=== PATIENT | female | born 1970 | race Caucasian/White ===

== ENCOUNTER 2018-10-24 07:52 | Observation (INO) | payer OTHER ==
[2018-10-24] MEDS: SOD CHLORIDE 0.9% 1,000 ML IV ×2 (08:00→13:39)
[2018-10-24] MEDS ORDERED: CEFAZOLIN 2 GM/50 ML (PMX) 50 ML IVPB (08:00)
[2018-10-24] MEDS ORDERED: LIDOCAINE 2% (SDV) 5 ML INJ (09:59)
[2018-10-24] MEDS ORDERED: FENTAnyl 50 MCG/ML VIAL ×2 (09:59→11:11)
[2018-10-24] MEDS ORDERED: MIDAZOLAM 1 MG/ML 2 ML INJ (09:59)
[2018-10-24] MEDS ORDERED: PROPOFOL 20 ML (09:59)
[2018-10-24] MEDS ORDERED: CEFAZOLIN 1 GM INJ (09:59)
[2018-10-24] MEDS ORDERED: DEXAMETHASONE 4 MG/ML 5 ML INJ (11:06)
[2018-10-24] MEDS ORDERED: METOCLOPRAMIDE 10 MG INJ (11:06)
[2018-10-24] MEDS ORDERED: FAMOTIDINE 20 MG INJ (11:06)
[2018-10-24] MEDS ORDERED: ONDANSETRON 4 MG INJ (11:06)
[2018-10-24] MEDS ORDERED: ISOSULFAN BLUE 1% 5 ML INJ SC (11:18)
[2018-10-24] MEDS ORDERED: OXYCODONE/ACETAMINOPHEN (5/325) TAB PO ×2 (11:30)
[2018-10-24] MEDS ORDERED: HYDROmorphONE 1 MG/5 ML IV SYRINGE IV (11:30)
[2018-10-24] MEDS: D5W-0.45 NACL + KCL 20 MEQ 1,000 ML IV ×2 (12:50→22:06)
[2018-10-24] MEDS ORDERED: ONDANSETRON 4 MG INJ IV (13:00)
[2018-10-24] MEDS: MEPERIDINE 25 MG INJ IV (13:14)
[2018-10-24] MEDS: ONDANSETRON 4 MG INJ IV (13:14)
[2018-10-24] MEDS: HYDROmorphONE 1 MG/5 ML IV SYRINGE IV ×2 (13:28→13:38)
[2018-10-24] MEDS: ACETAMINOPHEN 1000MG/100ML IV 100 ML IVPB (14:25)
[2018-10-24] MEDS: HYDROCODONE/APAP (5/325) TAB PO (22:06)
[2018-10-25] MEDS: ACETAMINOPHEN 1000MG/100ML IV 100 ML IVPB (00:47)
[2018-10-25] MEDS: SOD CHLORIDE 0.9% 1,000 ML IV ×2 (02:00→14:10)
[2018-10-25] MEDS: morphine 2 MG INJ IV (04:42)
[2018-10-25] MEDS: D5W-0.45 NACL + KCL 20 MEQ 1,000 ML IV ×2 (04:50→12:43)
[2018-10-25] MEDS: HYDROCODONE/APAP (5/325) TAB PO (12:05)
== END 2018-10-25 15:05 | disposition home or self-care (01) ==
LOC: SDS 07:52 → REC 12:50 → MS1 14:36
DX: C50.912 Malignant neoplasm of unspecified site of left female breast (principal); C77.3 Secondary and unspecified malignant neoplasm of axilla and upper limb lymph nodes; Z17.0 Estrogen receptor positive status [ER+]; N60.12 Diffuse cystic mastopathy of left breast; K21.9 Gastro-esophageal reflux disease without esophagitis; M19.90 Unspecified osteoarthritis, unspecified site
CPT/HCPCS: 19301; 88307; 99217

== ENCOUNTER 2018-12-28 22:09 | Emergency (ER) | payer OTHER ==
[2018-12-29] MEDS: DIPHENHYDRAMINE 50 MG CAP PO (01:08)
[2018-12-29] MEDS: FAMOTIDINE 20 MG TAB PO (01:08)
== END 2018-12-29 01:42 | disposition home or self-care (01) ==
LOC: FTE 22:09
DX: L29.9 Pruritus, unspecified (principal); C50.912 Malignant neoplasm of unspecified site of left female breast
CPT/HCPCS: 81025; 99283